=== PATIENT | female | born 1990 | race African-American/Black ===

== ENCOUNTER 2016-11-18 19:32 | Emergency (ER) | payer BC ==
[~2016-11-18] VITALS: Ht 175.3 cm; Wt 84.4 kg
[2016-11-18 20:07] LABS: HEMATOCRIT 38.3 % (36.0-46.0); MCH 30.9 PG (29.0-34.0); MCHC 33.7 G/DL (30.0-36.0); MCV 91.8 FL (83-99); MEAN PLAT.VOLUME 10.5 uM^3 (9.5-12.4); PLATELET COUNT 319 K/uL (156-360); RBC DIS.WIDTH-CV 12.3 % (11.8-14.6); RBC DIS.WIDTH-SD 40.8 % (39-53); RED BLOOD COUNT 4.17 M/uL (3.80-5.20); WHITE BLOOD COUNT 8.6 K/uL (4.1-10.2)
[2016-11-18 20:19] LABS: CHLORIDE 109 mEq/L (99-109); POTASSIUM 4.2 mEq/L (3.7-5.4); SODIUM 141 mEq/L (136-147)
[2016-11-18 20:21] LABS: GLUCOSE 98 mg/dL (70-99)
[2016-11-18 20:22] LABS: ANION GAP 10 MEQ/L (2-14)
[2016-11-18 20:23] LABS: TOTAL BILIRUBIN 0.2 mg/dL (0.0-1.0)
[2016-11-18 20:24] LABS: ALKALINE PHOSPHATASE 42 IU/L (3-129)
[2016-11-18 20:25] LABS: GFR ESTIMATE (CALCULATED) > 59 mL/min/
[2016-11-18 20:26] LABS: UREA NITROGEN (BUN) 12 mg/dL (9-23)
[2016-11-18 20:28] LABS: LIPASE 33 U/L (1.0-51.0)
[2016-11-18 20:34] LABS: QUANTITATIVE HCG < 4.0 MIU/ML
[2016-11-18 20:34] LABS: ADD MIUA? YES; BILIRUBIN NEGATIVE; BLOOD NEGATIVE; COLOR YELLOW ((YELLOW)); GLUCOSE (STRIP) NEGATIVE; KETONES NEGATIVE; LEUKOCYTES NEGATIVE; NITRITE NEGATIVE; PROTEIN (STRIP) 30; SPECIFIC GRAVITY 1.023 (1.000-1.030); UROBILINOGEN 0.2 MG/DL (0.2-1.0)
[2016-11-18 20:36] LABS: BACTERIA RARE /HPF; EPITHELIAL CELLS 1+ /HPF; MUCUS TRACE /LPF; RED BLOOD CELLS 0-5 /HPF (0-5); WHITE BLOOD CELLS 0-5 /HPF (0-5)
[2016-11-18] MEDS ORDERED: ZOFRAN ODT8 MG PO (22:30)
[2016-11-18] MEDS ORDERED: BENTYL20 MG PO (22:30)
[2016-11-18 22:52] VITALS: BP 140/92
== END 2016-11-18 22:53 | disposition home or self-care (01) ==
LOC: EME 19:32
PROVIDERS: Physician Assistant
DX: R10.11 Right upper quadrant pain (principal); R10.31 Right lower quadrant pain; R11.0 Nausea; F32.9 Major depressive disorder, single episode, unspecified; Z87.891 Personal history of nicotine dependence; Z88.0 Allergy status to penicillin
CPT/HCPCS: 74020; 80053; 81003; 83690; 84702; 85027; 99281; 99284

== ENCOUNTER 2017-02-04 13:34 | Emergency (ER) | payer BC ==
[~2017-02-04] VITALS: Ht 165.1 cm; Wt 90.4 kg
[~2017-02-04 13:34] MED LIST: BENTYL20 MG PO; ZOFRAN ODT8 MG PO
[2017-02-04 13:36] VITALS: BP 140/93
[2017-02-04 13:55] LABS: HEMATOCRIT 39.7 % (36.0-46.0); MCH 31.6 PG (29.0-34.0); MEAN PLAT.VOLUME 10.4 uM^3 (9.5-12.4); PLATELET COUNT 319 K/uL (156-360); RBC DIS.WIDTH-CV 11.9 % (11.8-14.6); RBC DIS.WIDTH-SD 40.5 % (39-53); RED BLOOD COUNT 4.27 M/uL (3.80-5.20); WHITE BLOOD COUNT 8.1 K/uL (4.1-10.2)
[2017-02-04 14:03] LABS: CHLORIDE 108 mEq/L (99-109); POTASSIUM 3.9 mEq/L (3.7-5.4); SODIUM 140 mEq/L (136-147)
[2017-02-04 14:06] LABS: GLUCOSE 91 mg/dL (70-99)
[2017-02-04 14:07] LABS: ANION GAP 7 MEQ/L (2-14)
[2017-02-04 14:08] LABS: TOTAL BILIRUBIN 0.2 mg/dL (0.0-1.0)
[2017-02-04 14:09] LABS: ALKALINE PHOSPHATASE 39 IU/L (3-129); GFR ESTIMATE (CALCULATED) > 59 mL/min/
[2017-02-04 14:10] LABS: UREA NITROGEN (BUN) 16 mg/dL (9-23)
[2017-02-04 14:18] LABS: QUANTITATIVE HCG < 4.0 MIU/ML
[2017-02-04 14:44] LABS: ADD MIUA? NO; BILIRUBIN NEGATIVE; BLOOD NEGATIVE; COLOR YELLOW ((YELLOW)); GLUCOSE (STRIP) NEGATIVE; KETONES NEGATIVE; LEUKOCYTES NEGATIVE; NITRITE NEGATIVE; PROTEIN (STRIP) NEGATIVE; SPECIFIC GRAVITY 1.025 (1.000-1.030); UCUL ADDED? NO; UROBILINOGEN 0.2 MG/DL (0.2-1.0)
== END 2017-02-04 15:30 | disposition left against medical advice (07) ==
LOC: EME 13:34
DX: R10.9 Unspecified abdominal pain (principal); Z53.21 Procedure and treatment not carried out due to patient leaving prior to being seen by health care provider
CPT/HCPCS: 80053; 81003; 84702; 85027